=== PATIENT | female | born 1995 | race Two or more races ===

== ENCOUNTER 2018-04-29 16:12 | Outpatient (CLI) | payer OTHER | END 2018-04-29 16:26 | disposition home or self-care (01) | LOC: RAD 16:12 | DX: M54.2 Cervicalgia (principal) ==

== ENCOUNTER 2018-05-08 14:10 | Outpatient (CLI) | payer OTHER | END 2018-05-08 14:27 | disposition home or self-care (01) | LOC: LAB 14:10 | DX: J11.1 Influenza due to unidentified influenza virus with other respiratory manifestations (principal) ==

== ENCOUNTER → 2018-07-30 | Outpatient (CLI) | payer OTHER | END | disposition home or self-care (01) | LOC: LAB 17:37 | DX: J11.1 Influenza due to unidentified influenza virus with other respiratory manifestations (principal) ==

== ENCOUNTER 2019-02-19 15:38 | Outpatient (CLI) | payer OTHER | END 2019-02-19 18:04 | disposition home or self-care (01) | LOC: LAB 15:38 | DX: N39.0 Urinary tract infection, site not specified (principal) ==

== ENCOUNTER 2019-02-20 10:53 | Emergency (ER) | payer OTHER ==
[~2019-02-20] VITALS: Ht 162.6 cm; Wt 45.4 kg
== END 2019-02-20 14:54 | disposition home or self-care (01) ==
LOC: ER 10:53
DX: N20.0 Calculus of kidney (principal); R10.32 Left lower quadrant pain; R31.0 Gross hematuria

== ENCOUNTER → 2019-05-22 | Outpatient (CLI) | payer OTHER | END | disposition home or self-care (01) | LOC: LAB 10:26 → EDBD 10:26 | DX: Z34.01 Encounter for supervision of normal first pregnancy, first trimester (principal); Z3A.10 10 weeks gestation of pregnancy ==

== ENCOUNTER → 2019-07-16 | Outpatient (CLI) | payer OTHER | END | disposition home or self-care (01) | LOC: PRENATAL 15:00 | DX: O28.1 Abnormal biochemical finding on antenatal screening of mother (principal); O35.3XX0 Maternal care for (suspected) damage to fetus from viral disease in mother, not applicable or unspecified; Z36.89 Encounter for other specified antenatal screening ==

== ENCOUNTER 2019-09-07 11:20 | Outpatient (CLI) | payer OTHER ==
[2019-09-07] MEDS ORDERED: PRENATAL TABLE1 EACH PO (11:49)
== END 2019-09-07 22:31 | disposition home or self-care (01) ==
LOC: OBS/DEL 11:20
PROVIDERS: ATTEND Obstetrics & Gynecology
DX: O60.02 Preterm labor without delivery, second trimester (principal); O26.842 Uterine size-date discrepancy, second trimester; O26.892 Other specified pregnancy related conditions, second trimester; R10.2 Pelvic and perineal pain

== ENCOUNTER 2019-09-27 04:36 | Inpatient (IN) | payer OTHER ==
[~2019-09-27] VITALS: Ht 162.6 cm; Wt 53.5 kg
[~2019-09-27 04:36] MED LIST: PRENATAL TABLE1 EACH PO
== END 2019-10-04 18:56 | disposition home or self-care (01) | DRG 833 ==
LOC: OBS/DEL 04:36 → OB/GYN 11:56 → OBS/DEL 11:56 → LDR 11:56 → OB/GYN 17:34
PROVIDERS: ADMIT Obstetrics & Gynecology; ATTEND Obstetrics & Gynecology
PROC: BY4FZZZ Ultrasonography of Third Trimester, Single Fetus (ICD-10-PCS; principal; 2019-09-27)
PROC: 4A1HXCZ Monitoring of Products of Conception, Cardiac Rate, External Approach (ICD-10-PCS; 2019-09-27)
DX: O60.03 Preterm labor without delivery, third trimester (principal); Z3A.29 29 weeks gestation of pregnancy

== ENCOUNTER 2019-10-25 15:43 | Outpatient (CLI) | payer OTHER | END 2019-10-26 11:03 | disposition home or self-care (01) | LOC: OBS/DEL 15:43 | PROVIDERS: ATTEND Obstetrics & Gynecology | DX: O60.03 Preterm labor without delivery, third trimester (principal) ==

== ENCOUNTER 2019-11-29 07:30 | Inpatient (IN) | payer OTHER ==
[~2019-11-29] VITALS: Ht 162.6 cm; Wt 57.6 kg
== END 2019-12-02 14:38 | disposition home or self-care (01) | DRG 768 ==
LOC: LDR 07:30 → OB/GYN 11-30 19:45
PROVIDERS: ADMIT Obstetrics & Gynecology; ATTEND Obstetrics & Gynecology
PROC: 4A1HXCZ Monitoring of Products of Conception, Cardiac Rate, External Approach (ICD-10-PCS; 2019-11-29)
PROC: 10E0XZZ Delivery of Products of Conception, External Approach (ICD-10-PCS; principal; 2019-11-30)
PROC: 0DQP0ZZ Repair Rectum, Open Approach (ICD-10-PCS; 2019-11-30)
DX: O70.3 Fourth degree perineal laceration during delivery (principal); Z37.0 Single live birth; Z3A.39 39 weeks gestation of pregnancy

== ENCOUNTER 2020-03-30 08:09 | Emergency (ER) | payer OTHER ==
[~2020-03-30] VITALS: Ht 162.6 cm; Wt 46.3 kg
[2020-03-30] MEDS ORDERED: ZITHROMAX500 MG PO (12:46)
[2020-03-30] MEDS ORDERED: MUCINEX DM ER1 EAC1 PO (12:46)
== END 2020-03-30 13:06 | disposition home or self-care (01) ==
LOC: ER 08:09
DX: J06.9 Acute upper respiratory infection, unspecified (principal); B96.0 Mycoplasma pneumoniae [M. pneumoniae] as the cause of diseases classified elsewhere; B34.9 Viral infection, unspecified; Z03.818 Encounter for observation for suspected exposure to other biological agents ruled out

== ENCOUNTER 2020-05-19 15:18 | Emergency (ER) | payer OTHER ==
[~2020-05-19] VITALS: Ht 162.6 cm; Wt 44.0 kg
[~2020-05-19 15:18] MED LIST changes: +MUCINEX DM ER1 EAC1 PO; +ZITHROMAX500 MG PO
== END 2020-05-19 16:11 | disposition home or self-care (01) ==
LOC: ER 15:18
DX: S61.441A Puncture wound with foreign body of right hand, initial encounter (principal); W46.1XXA Contact with contaminated hypodermic needle, initial encounter; Y93.89 Activity, other specified; Y92.238 Other place in hospital as the place of occurrence of the external cause

== ENCOUNTER 2020-10-20 09:32 | Outpatient (CLI) | payer OTHER | END 2020-10-20 09:33 | disposition home or self-care (01) | LOC: EDBD 09:32 → LAB 09:32 | PROVIDERS: ATTEND Emergency Medicine Pediatric Emergency Medicine | DX: Z03.818 Encounter for observation for suspected exposure to other biological agents ruled out (principal) ==

== ENCOUNTER 2021-01-22 21:00 | Emergency (ER) | payer OTHER ==
[~2021-01-22] VITALS: Ht 162.6 cm; Wt 43.1 kg
[2021-01-23] MEDS ORDERED: KETO10TA2 PO (01:09)
== END 2021-01-23 01:20 | disposition home or self-care (01) ==
LOC: ER 21:00
DX: R10.2 Pelvic and perineal pain (principal); N83.291 Other ovarian cyst, right side

== ENCOUNTER 2021-03-09 09:00 | Outpatient (CLI) | payer OTHER ==
[~2021-03-09 09:00] MED LIST changes: +KETO10TA2 PO
== END 2021-03-09 09:15 | disposition home or self-care (01) ==
LOC: PPH VACUNA 09:00
PROVIDERS: ATTEND Emergency Medicine Pediatric Emergency Medicine
DX: Z23 Encounter for immunization (principal)

== ENCOUNTER 2021-11-29 12:34 | Emergency (ER) | payer OTHER ==
[~2021-11-29] VITALS: Ht 162.6 cm; Wt 44.0 kg
== END 2021-11-29 14:27 | disposition home or self-care (01) ==
LOC: ER 12:34
DX: J03.90 Acute tonsillitis, unspecified (principal); Z91.040 Latex allergy status